=== PATIENT | female | born 1980 | race Caucasian/White ===

== ENCOUNTER → 2017-12-14 | Outpatient (CLI) | payer OTHER ==
[2017-12-14 11:00] LABS: ALANINE AMINOTRANSFERASE 23 U/L (9-52); ALBUMIN 4.5 g/dL (3.5-5.0); ALKALINE PHOSPHATASE 60 U/L (38-126); AMYLASE 60 U/L (30-110); ANION GAP 16 (5-19); ASPARTATE AMINO TRANSFERASE 27 U/L (14-36); BILIRUBIN,DIRECT 0.4 mg/dL (0.0-0.4); BILIRUBIN,TOTAL 0.4 mg/dL (0.2-1.3); BLOOD UREA NITROGEN 10 mg/dL (7-20); CALCIUM 9.5 mg/dL (8.4-10.2); CARBON DIOXIDE 26 mmol/L (22-30); CHLORIDE 99 mmol/L (98-107); CHOLESTEROL 233.53 mg/dL (0-200); GLUCOSE 93 mg/dL (75-110); POTASSIUM 4.3 mmol/L (3.6-5.0); SODIUM 140.5 mmol/L (137-145); TOTAL PROTEIN 7.2 g/dL (6.3-8.2); TRIGLYCERIDES 278 mg/dL (<150)
[2017-12-14 11:11] LABS: DIRECT LDL 159 mg/dL (<100)
[2017-12-14 11:15] LABS: FREE T3 3.84 pg/mL (2.77-5.27); FREE T4 (FREE THYROXINE) 0.99 ng/dL (0.78-2.19); VLDL CHOLESTEROL 55.6 mg/dL (10-31)
[2017-12-14 11:29] LABS: THYROID STIMULATING HORMONE 3.35 uIU/mL (0.47-4.68)
== END ==
LOC: OD 09:21
DX: G43.919 Migraine, unspecified, intractable, without status migrainosus (principal); J45.998 Other asthma; Z79.899 Other long term (current) drug therapy
CPT/HCPCS: 36415; 80053; 80061; 82150; 84439; 84443; 84481

== ENCOUNTER 2018-03-12 13:34 | Emergency (ER) | payer SELFPAY ==
--- NOTE | 2018-03-12 14:11 | ER Document Report ---
ED Skin Rash/Insect Bite/Abscs - General Chief Complaint: Rash Stated Complaint: SKIN ISSUE Time Seen by Provider: 03/12/18 13:57 Mode of Arrival: Ambulatory Information source: Patient Notes: 39-year-old female presented to ED for itching all over. She states that her body is been itching for 3 or 4 days. She has been going to the tanning bed because she is getting in May. There are a few bug bites on her neck otherwise she has been scratching multiple areas and she has scratch jaramillo from her scratching. She does have a first-degree sunburn on her chest from the tanning bed. Patient was encouraged to stop using the tanning bed use sunscreen and go ahead and work in the yard to get her suntan instead of going to the tanning bed. Patient encouraged to use antihistamine for her itching. TRAVEL OUTSIDE OF THE [place] IN LAST 30 DAYS: No - HPI Patient complains to provider of: Insect bite - Several small insect bites to the back of the neck the rest of the itching is from her scratching eating bed exposure, Other - Skin slightly red and has been scratched in multiple areas Onset: Other - Last couple days Quality of pain: Other - itching to body from taning bed Severity: Mild Pain Level: 1 Skin Character: Other - Mild redness to generalized body with scratch jaramillo from her scratching her tanning bed You were seen for pina today. Please clean and dress the areas twice daily and then apply the Silvadene cream that you were sent home with. Keep the area clean and dressed. You can take Percocet 1-2 tablets every 6 hours as needed for severe pain. If you are taking Percocet, be sure to take a stool softener and laxative such as sennosides with docusate to prevent severe constipation. Please return if you develop pus from the wounds, spreading redness from the areas, worsening pain, or any other symptoms that are worrisome to you. Please follow-up with your primary care doctor in the next 1-2 days. Quality of rash: Itchy, Painful Exacerbated by: Denies Relieved by: Denies Similar symptoms previously: Yes Recently seen / treated by doctor: No - Related Data Allergies/Adverse Reactions: No Known Allergies Allergy (Verified 03/12/18 13:38) Past Medical History - General Information source: Patient - Social History Smoking Status: Former Smoker - Currently uses vapor cigarettes Chew tobacco use (# tins/day): No Frequency of alcohol use: None Drug Abuse: None Lives with: Spouse/Significant other Family History: Reviewed & Not Pertinent Patient has suicidal ideation: No Patient has homicidal ideation: No - Past Medical History Cardiac Medical History: Reports: None Pulmonary Medical History: Reports: Hx Asthma EENT Medical History: Reports: None Neurological Medical History: Reports: None Endocrine Medical History: Comment Only: Hx Diabetes Mellitus Type 2 - gestational Renal/ Medical History: Reports: None Malignancy Medical History: Reports: None GI Medical History: Reports: None Musculoskeltal Medical History: Reports None Skin Medical History: Reports None Psychiatric Medical History: Reports: Hx Anxiety, Hx Bipolar Disorder, Hx Depression Traumatic Medical History: Reports: None Infectious Medical History: Reports: None Past Surgical History: Reports: Hx Section - X3, Hx Oral Surgery, Hx Orthopedic Surgery - LEFT KNEE X2, Hx Tonsillectomy - AND ADNOIDS - Immunizations Hx Diphtheria, Pertussis, Tetanus Vaccination: Yes - 2011 Review of Systems - Review of Systems Constitutional: No symptoms reported EENT: No symptoms reported Cardiovascular: No symptoms reported Respiratory: No symptoms reported Gastrointestinal: No symptoms reported Genitourinary: No symptoms reported Female Genitourinary: No symptoms reported Musculoskeletal: No symptoms reported Skin: Other - Mild tanning bed burn her general body area with obvious scratch jaramillo to the abdomen and legs where the patient states she has been scratching the itching you insect bites to the back of the neck Hematologic/Lymphatic: No symptoms reported Neurological/Psychological: No symptoms reported -: Yes All other systems reviewed and negative Physical Exam - Vital signs Vitals: Temp Pulse Resp BP Pulse Ox 98.5 F 76 14 150/85 H 100 03/12/18 13:38 03/12/18 13:38 03/12/18 13:38 03/12/18 13:38 03/12/18 13:38 Interpretation: Normal - General General appearance: Appears well, Alert - HEENT Head: Normocephalic, Atraumatic Eyes: Normal Pupils: PERRL - Respiratory Respiratory status: No respiratory distress Chest status: Nontender Breath sounds: Normal Chest palpation: Normal - Cardiovascular Rhythm: Regular Heart sounds: Normal auscultation Murmur: No - Abdominal Inspection: Normal Distension: No distension Bowel sounds: Normal Tenderness: Nontender Organomegaly: No organomegaly - Back Back: Normal, Nontender - Extremities General upper extremity: Normal inspection, Nontender, Normal color, Normal ROM , Normal temperature General lower extremity: Normal inspection, Nontender, Normal color, Normal ROM , Normal temperature, Normal weight bearing. No: Seth's sign - Neurological Neuro grossly intact: Yes Cognition: Normal Orientation: AAOx4 [place] Coma Scale Eye Opening: Spontaneous [place] Coma Scale Verbal: Oriented [place] Coma Scale Motor: Obeys Commands [place] Coma Scale Total: 15 Speech: Normal Motor strength normal: LUE, RUE, LLE, RLE Sensory: Normal - Psychological Associated symptoms: Normal affect, Normal mood - Skin Skin Temperature: Warm Skin Moisture: Dry Skin Color: Normal Location of irregularity: Other - Tanning bed burn to the general body area with itching. Obvious scratch jaramillo to the abdomen and legs. Few insect bites to the back of the neck. Irregularity with: Tenderness Course - Re-evaluation Re-evalutation: 03/12/18 14:16 She was encouraged to use Zyrtec or Benadryl for her itching from the bed burn. She was encouraged to quit scratching it as she has made multiple scratch jaramillo on her abdomen and legs. Patient encouraged to use 1% Xylocaine to her abdomen chest and legs but not her face. Patient encouraged to go outside and to get her suntan instead of the tendon bed. - Vital Signs Vital signs: Temp Pulse Resp BP Pulse Ox 98.5 F 76 14 150/85 H 100 03/12/18 13:38 03/12/18 13:38 03/12/18 13:38 03/12/18 13:38 03/12/18 13:38 Discharge - Discharge Clinical Impression: Urticaria from tanning bed Insect bite Qualifiers: Encounter type: initial encounter Qualified Code(s): W57.XXXA - Bitten or stung by nonvenomous insect and other nonvenomous arthropods, initial encounter Condition: Stable Disposition: HOME, SELF-CARE Instructions: Family Physicians / Practices Additional Instructions: You have urticaria from tanning bed. You have been encouraged to stop using the tanning bed use sunscreen and work in the yard to get your suntan for your wedding Use Benadryl or Zyrtec for your itching. You can also use 1% Xylocaine cream to your itching. You cannot put Xylocaine on your face. Use ice cube or ice packs to rub on your skin instead of scratching. Also use Benadryl cream to your skin that is itching Diphenhydramine The use of diphenhydramine (Benadryl) has been recommended to control allergic symptoms. The 25 mg strength is available over- the-counter, as well as the elixir. This antihistamine is used for many symptoms. It's useful for itching, watering eyes and nose, allergic swelling, hives, and insect stings. The medication can be repeated four times daily. Age Elixir (12.5 mg/tsp) 25 mg pill 1 yr 1/4 tsp 2-3 yr 1/2 tsp 4-8 yr 1 tsp 9-14 yr 2 tsp one tab adult 1-2 tabs Antihistamines may cause drowsiness, especially with the first dose. Do not operate machinery or drive while under the effects of the medication. Do not combine the medication with alcohol, or with any other medication without talking to your doctor. FOLLOW-UP CARE: If you have been referred to a physician for follow-up care, call the physician s office for an appointment as you were instructed or within the next two days. If you experience worsening or a significant change in your symptoms, notify the physician immediately or return to the Emergency Department at any time for re-evaluation. Forms: Elevated Blood Pressure, Return to Work
[2018-03-12 14:25] VITALS: BP 127/85
== END 2018-03-12 14:24 | disposition home or self-care (01) ==
LOC: ER 13:34
DX: L50.0 Allergic urticaria (principal); L56.8 Other specified acute skin changes due to ultraviolet radiation; W89.1XXA Exposure to tanning bed, initial encounter; S10.96XA Insect bite of unspecified part of neck, initial encounter; W57.XXXA Bitten or stung by nonvenomous insect and other nonvenomous arthropods, initial encounter
CPT/HCPCS: 99283